=== PATIENT | female | born 1980 | race Caucasian/White ===

== ENCOUNTER 2019-12-13 09:06 | Emergency (ER) | payer BC ==
[~2019-12-13] VITALS: Ht 170.2 cm; Wt 90.0 kg
[2019-12-13 09:16] VITALS: BP 152/85
[2019-12-13 10:19] LABS: URINE HCG NEGATIVE (NEG)
[2019-12-13 10:25] LABS: CLARITY,URINE CLEAR (Clear); COLOR,URINE YELLOW (Yellow); GLUCOSE, URINE NEGATIVE (Neg); KETONES,URINE NEGATIVE (Neg); LEUKOCYTE ESTERASE ,URINE TRACE (Neg); NITRITES, URINE NEGATIVE (Neg); OCCULT BLOOD,URINE NEGATIVE (Neg); PH,URINE 6.5 (4.8-8.0); PROTEIN,URINE NEGATIVE (Neg); UROBILINOGEN,URINE 0.2 E.U/dL (0.2-1.0)
[2019-12-13 10:29] LABS: UA COLLECTION TYPE CLN CATCH MIDSTREAM
[2019-12-13 10:31] LABS: BACTERIA,URINE FEW /HPF (Neg); MUCUS STRANDS NONE SEEN /LPF (Neg); RBC,URINE NONE SEEN /HPF (0-2); SQUAMOUS EPITHELIAL CELL,UR MODERATE /LPF (FEW); WBC,URINE 0-4 /HPF (0-4)
[2019-12-13] MEDS ORDERED: LIDOcaine 5% patch TP STA (10:32)
[2019-12-13] MEDS ORDERED: CYCL-1 PO (10:49)
[2019-12-13] MEDS ORDERED: MELO-102 PO (10:49)
== END 2019-12-13 11:03 | disposition home or self-care (01) ==
LOC: ER 09:07
DX: M25.512 Pain in left shoulder (principal); Z88.1 Allergy status to other antibiotic agents; X50.9XXA Other and unspecified overexertion or strenuous movements or postures, initial encounter; Y93.B9 Activity, other involving muscle strengthening exercises; Y92.89 Other specified places as the place of occurrence of the external cause; Y99.8 Other external cause status
CPT/HCPCS: 81001; 81025; 87088; 99283

== ENCOUNTER 2020-12-06 04:19 | Emergency (ER) | payer BC, OTHER ==
[~2020-12-06] VITALS: Ht 170.2 cm; Wt 88.6 kg
[~2020-12-06 04:19] MED LIST: CYCL-1 PO; MELO-102 PO
[2020-12-06 05:50] VITALS: BP 127/70
== END 2020-12-06 08:00 | disposition left against medical advice (07) ==
LOC: ER 04:20
DX: M54.50 Low back pain, unspecified (principal); Z53.21 Procedure and treatment not carried out due to patient leaving prior to being seen by health care provider